=== PATIENT | male | born 1995 | race Caucasian/White ===

== ENCOUNTER 2018-01-23 14:18 | Emergency (ER) | payer BC ==
[2018-01-23] MEDS ORDERED: NS 0.9% 1000 ML* 1,000 ML IV ONE (17:37)
[2018-01-23 17:59] LABS: ABS Basophils 0 10^3/ul (0-0.2); ABS Eosinophils 0.1 10^3/ul (0-0.6); ABS Lymphocytes 1.8 10^3/ul (1.0-4.8); ABS Monocytes 0.4 10^3/ul (0-0.8); ABS Neutrophils 3.3 10^3/ul (1.5-7.7); ABS Nucleated RBC 0 10^3/ul; Eosinophil % 1.2 % (0-6); Hematocrit 44 % (42-52); Lymphocyte % 32.2 % (25-47); Mean Corpuscular HGB Conc 34 g/dl (31-36); Mean Corpuscular Hemoglobin 30 pg (27-31); Mean Corpuscular Volume 87 fL (80-94); Nucleated Red Blood Cells % 0; Platelet Count 168 10^3/ul (150-450); Red Blood Count 5.06 10^6/ul (4.00-5.40); Red Cell Distribution Width 13 % (10.5-15); White Blood Count 5.5 10^3/ul (3.5-10.8)
[2018-01-23 18:07] LABS: INR 1.16 (0.77-1.02)
--- NOTE | 2018-01-23 18:13 | ED ---
Abdominal Pain/Male - HPI Summary HPI Summary: A 22 y/o male presents to ED c/o sharp RLQ abdominal pain reaching 5/10 in severity. As per triage, "LRQ pain for 3 days. Worse with sitting and putting pressure on it. Pt denies n/v has slight diarrhea. According to the patient, he started experiencing abdominal pain last Wednesday or Wednesday, but it gradually came back between the last 2-3 days with increasing pain. He noted that the pain is constant and especially hurts when he twists. Denies blood in urine. No other known medical issues besides chief complaint. No PMHx of appendectomy or kidney stones. - History of Current Complaint Chief Complaint: EDAbdPain Stated Complaint: ABD PAIN Time Seen by Provider: 01/23/18 17:25 Hx Obtained From: Patient Onset/Duration: Sudden Onset, Lasting Days, Still Present Timing: Constant Severity Initially: Moderate Severity Currently: Moderate Pain Intensity: 5 Pain Scale Used: 0-10 Numeric Location: Discrete At: RLQ Radiates: No Character: Sharp Aggravating Factor(s): Movement Alleviating Factor(s): Nothing Associated Signs And Symptoms: Positive: Negative - Allergies/Home Medications Allergies/Adverse Reactions: Allergies Allergy/AdvReac Type Severity Reaction Status Date / Time aspirin Allergy Airway Verified 01/23/18 14:29 Obstruction PMH/Surg Hx/FS Hx/Imm Hx Endocrine/Hematology History: Denies: Hx Diabetes Cardiovascular History: Denies: Hx Hypertension Respiratory History: Reports: Hx Asthma - Surgical History Surgery Procedure, Year, and Place: tonsillectomy. Infectious Disease History: No Infectious Disease History: Denies: Traveled Outside the [place] in Last 30 Days - Family History Known Family History: Negative: Hypertension, Diabetes - Social History Alcohol Use: None Substance Use Type: Reports: None Smoking Status (MU): Never Smoked Tobacco Review of Systems Negative: Fever Positive: Abdominal Pain Negative: dysuria All Other Systems Reviewed And Are Negative: Yes Physical Exam - Summary Physical Exam Summary: Appearance: Well appearing, no pain distress Skin: warm, dry, reflects adequate perfusion Head/face: normal Eyes: EOMI, ABRAM ENT: normal Neck: supple, non-tender Respiratory: CTA, breath sounds present Cardiovascular: RRR, pulses symmetrical Abdomen: tenderness RLQ, soft Bowel: present Musculoskeletal: normal, strength/ROM intact Neuro: normal, sensory motor intact, A&Ox3 Triage Information Reviewed: Yes Vital Signs On Initial Exam: Initial Vitals Temp Pulse Resp BP Pulse Ox 98.9 F 51 14 139/76 100 01/23/18 14:29 01/23/18 14:29 01/23/18 14:29 01/23/18 14:29 01/23/18 14:29 Vital Signs Reviewed: Yes Diagnostics - Vital Signs Vital Signs Temp Pulse Resp BP Pulse Ox 01/23/18 16:34 98.3 F 83 16 113/72 100 01/23/18 14:29 98.9 F 51 14 139/76 100 - Laboratory Lab Results: Lab Results 01/23/18 01/23/18 Range/Units 17:49 17:49 WBC 5.5 (3.5-10.8) 10^3/ul RBC 5.06 (4.00-5.40) 10^6/ul Hgb 15.0 (14.0-18.0) g/dl Hct 44 (42-52) % MCV 87 (80-94) fL MCH 30 (27-31) pg MCHC 34 (31-36) g/dl RDW 13 (10.5-15) % Plt Count 168 (150-450) 10^3/ul MPV 7.0 L (7.4-10.4) um3 Neut % (Auto) 59.3 (38-83) % Lymph % (Auto) 32.2 (25-47) % [place] % (Auto) 6.7 (0-7) % Eos % (Auto) 1.2 (0-6) % Baso % (Auto) 0.6 (0-2) % Absolute Neuts (auto) 3.3 (1.5-7.7) 10^3/ul Absolute Lymphs (auto) 1.8 (1.0-4.8) 10^3/ul Absolute Monos (auto) 0.4 (0-0.8) 10^3/ul Absolute Eos (auto) 0.1 (0-0.6) 10^3/ul Absolute Basos (auto) 0 (0-0.2) 10^3/ul Absolute Nucleated RBC 0 10^3/ul Nucleated RBC % 0 INR (Anticoag Therapy) 1.16 H (0.77-1.02) APTT 31.8 (26.0-36.3) seconds Result Diagrams: 01/23/18 17:49 01/23/18 17:49 Lab Statement: Any lab studies that have been ordered have been reviewed, and results considered in the medical decision making process. - CT CT A/P CT Interpretation Completed By: Radiologist - FINDINGS: Lung bases: Normal. No mass. No consolidation. ABDOMEN: Liver: Normal. No masses. Portal and hepatic veins are patent. Gallbladder and bile ducts: Normal. No radiopaque calculi. No ductal dilation. Pancreas: Normal. No mass. No ductal dilation. Spleen: Normal. No splenomegaly. Adrenals: Normal. No mass. Kidneys and ureters: No renal solid cortical lesions, calculi, or pelvocaliectasis. Stomach and bowel: Incompletely distended grossly normal stomach. Normal caliber small bowel. No colonic masses or segmental wall thickening. PELVIS: Appendix: Normal caliber appendix without wall thickening or adjacent inflammation. Bladder: Thin-walled bladder with no focal nodularity, perivesicular stranding, or calcifications. Reproductive: Normal sized prostate. Normal seminal vesicles. ABDOMEN and PELVIS: Intraperitoneal space: Normal. No pneumoperitoneum. No ascities. Bones/ joints: No fractures. No suspicious bone lesions. Soft tissues: Normal. No hernias. Vasculature: Normal caliber aorta with no evidence of dissection or rupture. Patent IVC. Lymph nodes: Normal. No enlarged lymph nodes. ED PHYSICIAN REVIEWED THIS RADIOLOGY REPORT. Re-Evaluation - Re-Evaluation First Eval Re-Evaluation Time: 21:06 Comment: Discussed plan and discharge with patient. Abdominal Pain Fem Course/Dx - Course Course Of Treatment: A 22 y/o male presents to ED c/o sharp RLQ abdominal pain reaching 5/10 in severity. According to the patient, he started experiencing abdominal pain last Wednesday or Wednesday, but it gradually came back between the last 2-3 days with increasing pain. He noted that the pain is constant and especially hurts when he twists. Denies blood in urine. A CT A/P scan, blood work and UA were all within normal limits. In the ED course, the patient recieved Motrin, Omnipaque and IV fluids. Patient will be discharged with a diagnosis of unspecificed abdominal pain. Patient will be sent home with prescribed ibuprofen. Patient is to follow up with PCP in 3 days. Patient is agreeable with this plan. - Diagnoses Differential Diagnosis/HQI/PQRI: Appendicitis, Constipation, Diverticulitis, Peptic Ulcer Disease, Renal Colic, Urinary Tract Infection Provider Diagnoses: Unspecified abdominal pain Discharge - Sign-Out/Discharge Documenting (check all that apply): Patient Departure - DISCHARGE - Discharge Plan Condition: Stable Disposition: HOME Prescriptions: Ibuprofen TAB* [Motrin TAB* 600 MG] 600 mg PO Q8H PRN #15 tab MDD 3 PRN Reason: Pain Patient Education Materials: Acute Abdominal Pain (ED), Abdominal Pain (ED) Referrals: [facility] [Outside] Additional Instructions: FOLLOW UP WITH PRIMARY CARE PHYSICIAN OR [facility] IN 3 DAYS. RETURN TO ED FOR ANY NEW OR WORSENING SYMPTOMS. - Billing Disposition and Condition Condition: STABLE Disposition: Home - Attestation Statements Document Initiated by Jesus: Yes Documenting Scribe: Andrea Pantoja Provider For Whom Jesus is Documenting (Include Credential): Luiz Rodriguez MD Scribe Attestation: Andrea Childs scribed for Luiz Rodriguez MD on 01/23/18 at 2155. Scribe Documentation Reviewed: Yes Provider Attestation: The documentation as recorded by the Andrea restrepo accurately reflects the service I personally performed and the decisions made by , Luiz Rodriguez MD
[2018-01-23 18:16] LABS: EGFR Non-African American 113.2 (>60)
[2018-01-23] MEDS ORDERED: Iohexol 300* (CONTRAST) 10 ML SDV IV ONE (19:34)
[2018-01-23 20:32] LABS: Urine Appearance Clear; Urine Blood Negative (Negative); Urine Color Yellow; Urine Ketones Negative (Negative); Urine Protein Negative (Negative); Urine Specific Gravity 1.021 (1.010-1.030); Urine Urobilinogen Negative (Negative)
--- NOTE | 2018-01-23 21:11 | RAD ---
EXAM: CT Abdomen and Pelvis With Intravenous Contrast CLINICAL HISTORY: 22 years old, male; Pain; Abdominal pain; Flank; Right lower quadrant (rlq); Additional info: Appendicitis. Rlq pain for 3 days. Worse with sitting and putting pressure on it. Pt denies n/v has slight diarrhea. end TECHNIQUE: Axial computed tomography images of the abdomen and pelvis with intravenous contrast. All CT scans at this facility use at least one of these dose optimization techniques: automated exposure control; mA and/or kV adjustment per patient size (includes targeted exams where dose is matched to clinical indication); or iterative reconstruction. Coronal and sagittal reformatted images were created and reviewed. CONTRAST: 124 mL of [id number] administered intravenously. COMPARISON: No relevant prior studies available. FINDINGS: Lung bases: Normal. No mass. No consolidation. ABDOMEN: Liver: Normal. No masses. Portal and hepatic veins are patent. Gallbladder and bile ducts: Normal. No radiopaque calculi. No ductal dilation. Pancreas: Normal. No mass. No ductal dilation. Spleen: Normal. No splenomegaly. Adrenals: Normal. No mass. Kidneys and ureters: No renal solid cortical lesions, calculi, or pelvocaliectasis. Stomach and bowel: Incompletely distended grossly normal stomach. Normal caliber small bowel. No colonic masses or segmental wall thickening. PELVIS: Appendix: Normal caliber appendix without wall thickening or adjacent inflammation. Bladder: Thin-walled bladder with no focal nodularity, perivesicular stranding, or calcifications. Reproductive: Normal sized prostate. Normal seminal vesicles. ABDOMEN and PELVIS: Intraperitoneal space: Normal. No pneumoperitoneum. No ascities. Bones/joints: No fractures. No suspicious bone lesions. Soft tissues: Normal. No hernias. Vasculature: Normal caliber aorta with no evidence of dissection or rupture. Patent IVC. Lymph nodes: Normal. No enlarged lymph nodes. IMPRESSION: No CT findings to correlate with patient's symptomatology. Specifically no appendicitis.
[2018-01-23] MEDS ORDERED: Ibuprofen TAB* 600 MG PO ONE (21:17)
[2018-01-23 21:40] VITALS: BP 132/74
== END 2018-01-23 21:55 | disposition home or self-care (01) ==
LOC: ED 14:18
DX: R10.31 Right lower quadrant pain (principal); Z88.6 Allergy status to analgesic agent
CPT/HCPCS: 36415; 74177; 80053; 81003; 83605; 83690; 85025; 85610; 85730; 96360; 96361; 99283; A9270-GY; Q9967

== ENCOUNTER → 2018-10-20 16:33 | Emergency (ER) | payer BC ==
--- NOTE | 2018-10-20 17:42 | ED ---
Back Pain - HPI Summary HPI Summary: 23-year-old male presents with complaints of neck and back pain. Patient states he has had a long-standing issue with back pain but states the pain has been progressively worsening over the past 2 weeks. He notes generalized back pain although states it is a little bit worse on the right side. He has not tried taking anything type of pain medication. Patient works at [employer] from [employer]. Denies fever, chills, chest pain, shortness of breath, abdominal pain, nausea, vomiting, dysuria, frequency, urgency, hematuria, weakness, numbness, or tingling of the extremities, or loss of bowel or bladder control. - History of Current Complaint Chief Complaint: EDNeckComplaint Stated Complaint: "NECK PAIN/BACK PAIN PER PT" Time Seen by Provider: 10/20/18 17:30 Hx Obtained From: Patient Pain Intensity: 4 - Allergies/Home Medications Allergies/Adverse Reactions: Allergies Allergy/AdvReac Type Severity Reaction Status Date / Time aspirin Allergy Airway Verified 10/20/18 16:41 Obstruction PMH/Surg Hx/FS Hx/Imm Hx Previously Healthy: Yes - Denies significant PMH Endocrine/Hematology History: Denies: Hx Diabetes Cardiovascular History: Denies: Hx Hypertension Respiratory History: Reports: Hx Asthma - Surgical History Surgery Procedure, Year, and Place: tonsillectomy. Infectious Disease History: No Infectious Disease History: Denies: Traveled Outside the [place] in Last 30 Days - Family History Known Family History: Positive: Non-Contributory Negative: Hypertension, Diabetes - Social History Occupation: Employed Part-time Lives: With Family Alcohol Use: None Substance Use Type: Reports: None Smoking Status (MU): Never Smoked Tobacco Review of Systems Negative: Fever, Chills Cardiovascular: Negative Respiratory: Negative Gastrointestinal: Negative Genitourinary: Negative Musculoskeletal: Other - See HPI Skin: Negative Neurological: Negative All Other Systems Reviewed And Are Negative: Yes Physical Exam - Summary Physical Exam Summary: GENERAL APPEARANCE: Well developed, well nourished, alert and cooperative, and appears to be in no acute distress. CARDIAC: Normal S1 and S2. No S3, S4 or murmurs. Rhythm is regular. There is no peripheral edema, cyanosis or pallor. Extremities are warm and well perfused. Capillary refill is less than 2 seconds. Peripheral pulses intact. LUNGS: Clear to auscultation without rales, rhonchi, wheezing or diminished breath sounds. ABDOMEN: Positive bowel sounds. Soft, nondistended, nontender. No guarding or rebound. No masses or hepatosplenomegally. No CVA tenderness. MUSKULOSKELETAL: ROM intact to all extremities. No joint erythema or tenderness. Normal muscular development. Normal gait. BACK: Examination of the spine reveals normal posture, no spinal deformity or mid-line spinal tenderness, diffuse mild paraspinal tenderness with muscular spasm noted. NEUROLOGICAL: Strength and sensation symmetric and intact throughout. SKIN: Skin normal color, texture and turgor with no lesions or eruptions. Triage Information Reviewed: Yes Vital Signs On Initial Exam: Initial Vitals Temp Pulse Resp BP Pulse Ox 98 F 66 18 161/86 100 10/20/18 16:38 10/20/18 16:38 10/20/18 16:38 10/20/18 16:38 10/20/18 16:38 Vital Signs Reviewed: Yes Diagnostics - Vital Signs Vital Signs Temp Pulse Resp BP Pulse Ox 10/20/18 16:38 98 F 66 18 161/86 100 - Laboratory Lab Statement: Any lab studies that have been ordered have been reviewed, and results considered in the medical decision making process. Back Pain Course/Dx - Course Course Of Treatment: 23-year-old male presents with complaints of neck and back pain. Patient states he has had a long-standing issue with back pain but states the pain has been progressively worsening over the past 2 weeks. He notes generalized back pain although states it is a little bit worse on the right side. He has not tried taking anything type of pain medication. Patient works at [employer] from [employer]. Denies fever, chills, chest pain, shortness of breath, abdominal pain, nausea, vomiting, dysuria, frequency , urgency, hematuria, weakness, numbness, or tingling of the extremities, or loss of bowel or bladder control. Afebrile. Hypertensive otherwise vital signs stable. Patient had normal posture, no spinal deformity or mid-line spinal tenderness, diffuse mild paraspinal tenderness with muscular spasm noted and otherwise unremarkable exam. Recommending conservative treatment for acute back pain. Patient has a known allergy to NSAIDs therefore recommending acetaminophen 1000 mg every 6 hours as needed for pain, cyclobenzaprine 10 mg every 8 hours as needed for severe pain or spasm, as well as heat therapy. Patient was provided with the information for the [facility] physician referral service so that he can establish with a primary care provider considering the chronic nature of his back pain. Anticipatory guidance and warning symptoms were reviewed with the patient. Verbalizes understanding and agrees with plan of care. - Diagnoses Differential Diagnosis/HQI/PQRI: Positive: Herniated Disc, Renal Colic, Strain Provider Diagnoses: Back pain Discharge - Sign-Out/Discharge Documenting (check all that apply): Patient Departure Patient Received Moderate/Deep Sedation with Procedure: No - Discharge Plan Condition: Stable Disposition: HOME Prescriptions: Cyclobenzaprine TAB* [Flexeril 10 MG TAB*] 10 mg PO TID PRN #21 tab PRN Reason: Spasms - Back Patient Education Materials: Back Pain (ED) Forms: *Work Release Referrals: No Primary Care Phys,NOPCP [Primary Care Provider] - [facility] [facility] [Outside] Additional Instructions: It is important to stay active when you have back pain. You do need to modify you activity and avoid strenuous activities and heavy lifting. Take acetaminophen (Tylenol) 1000 mg every 6 hours as needed for pain. Take cyclobenzaprine 10 mg 1 tab every 8 hours as needed for severe pain or spasm. This medication will cause drowsiness so do not take and drive or operate machinery. Try using warm moist heat for 15-20 minutes at least 4 times a day. Contact the [facility] physician referral service to establish with a primary care provider for further evaluation of your [facility]ent[facility] back problems. Return to the emergency room if you develop fever greater than 100.5 F, develop numbness, tingling, or weakness in your lower extremities, lose bowel or bladder control, or have any worsening of symptoms. - Billing Disposition and Condition Condition: STABLE Disposition: Home
[2018-10-20 18:24] VITALS: BP 143/79
== END | disposition home or self-care (01) ==
LOC: ED 16:33
DX: M54.9 Dorsalgia, unspecified (principal); J45.909 Unspecified asthma, uncomplicated; Z88.6 Allergy status to analgesic agent
CPT/HCPCS: 99282